=== PATIENT | male | born 1975 | race African-American/Black ===

== ENCOUNTER 2018-05-01 12:17 | Emergency (ER) | payer MEDICAID ==
[~2018-05-01] VITALS: Ht 172.7 cm; Wt 72.6 kg
[2018-05-01 13:03] VITALS: BP 178/104
[2018-05-01] MEDS ORDERED: cefTRIAXone SOD 1,000 MG VL IM ONE (15:45)
[2018-05-01] MEDS ORDERED: KETOROLAC TROMETH 60MG/2ML VIAL IM ONE (15:45)
[2018-05-01] MEDS ORDERED: HYDROcodone-ACET 5/325MG TAB PO ONE (15:45)
== END 2018-05-01 16:26 | disposition home or self-care (01) ==
LOC: ER 12:17
DX: S62.306B Unspecified fracture of fifth metacarpal bone, right hand, initial encounter for open fracture (principal); W22.8XXA Striking against or struck by other objects, initial encounter; Y93.89 Activity, other specified; Y99.8 Other external cause status; Y92.89 Other specified places as the place of occurrence of the external cause
CPT/HCPCS: 29125; 73130; 96372; 99283; J0696; J1885